=== PATIENT | female | born 1995 | race Two or more races ===

== ENCOUNTER 2025-04-05 18:39 | Emergency (ER) | payer SELFPAY ==
[~2025-04-05] VITALS: Ht 160 cm; Wt 95.3 kg
[2025-04-05 18:43] VITALS: BP 121/73
[2025-04-05] MEDS ORDERED: MELO15TA13 PO (19:00)
[2025-04-05 19:18] VITALS: BP 121/73; TEMP 98; O2SAT 99
== END 2025-04-05 19:18 | disposition home or self-care (01) ==
LOC: ER 18:41
DX: M19.012 Primary osteoarthritis, left shoulder (principal); M25.511 Pain in right shoulder
CPT/HCPCS: 73020; A4606; A4663